=== PATIENT | male | born 1985 | race Caucasian/White ===

== ENCOUNTER 2021-10-30 14:30 | Emergency (ER) | payer OTHER ==
[~2021-10-30] VITALS: Ht 180.3 cm; Wt 105.1 kg
[2021-10-30 14:30] VITALS: BP 116/66
[2021-10-30] MEDS ORDERED: KETOROLAC 30 MG/ML 1ML VIAL IM ONE (17:25)
== END 2021-10-30 19:04 | disposition home or self-care (01) ==
LOC: M ED 14:30
DX: M50.30 Other cervical disc degeneration, unspecified cervical region (principal); S53.402A Unspecified sprain of left elbow, initial encounter; S32.058A Other fracture of fifth lumbar vertebra, initial encounter for closed fracture; X58.XXXA Exposure to other specified factors, initial encounter; Y92.89 Other specified places as the place of occurrence of the external cause; Y99.0 Civilian activity done for income or pay
CPT/HCPCS: 70450; 72125; 72128; 72131; 73030; 73080; 73110; 96372; 99282; J1885